=== PATIENT | male | born 1950 | race Caucasian/White ===

== ENCOUNTER 2019-10-16 10:41 | Inpatient (IN) ==
[2019-10-16] MEDS ORDERED: Aspirin 81 MG TAB.CHEW PO ONE (10:48)
[2019-10-16] MEDS: Nitroglycerin 0.4 MG TAB.SUBL SL PRN ×2 (11:09→11:18)
[2019-10-16 12:02] LABS: Basophils % 0.5 %; Eosinophils # 0.1 K/mcL (0.0-0.6); Eosinophils % 1.7 %; Hematocrit 40.9 % (37.5-50.1); Hemoglobin 13.9 g/dL (12.9-16.9); Immature Granulocytes % 0.3 % (0-4); Lymphocytes # 1.7 K/mcL (0.6-4.6); Lymphocytes % 25.6 %; Mean Corpuscular Hemoglobin 30.5 pg (28.0-33.3); Mean Corpuscular Volume 89.7 fL (83.0-100.0); Mean Platelet Volume 9.2 fL (9.4-12.4); Monocytes # 0.5 K/mcL (0.0-1.3); Monocytes % 7.1 %; Neutrophils # 4.2 K/mcL (1.6-8.9); Platelet Count 268 K/mcL (140-400); Red Blood Count 4.56 M/mcL (4.19-5.50); Red Cell Distribution Width 12.7 % (11.5-14.5); Segmented Neutrophils % 64.8 %; White Blood Count 6.4 K/mcL (4.3-11.1)
[2019-10-16 12:24] LABS: Activated Partial Thrombo Time 34.8 Seconds (26.0-36.0); BUN/Creatinine Ratio 15 (6-26); Blood Urea Nitrogen 13 mg/dL (8-23); Calcium 9.2 mg/dL (8.6-10.3); Carbon Dioxide 27 mEq/L (23-29); Chloride 103 mEq/L (98-107); Glucose 179 mg/dL (70-105); Osmolality,Calculated 289 (280-300); Potassium 4.2 mEq/L (3.5-5.1); Prothrombin Time 11.7 Seconds (9.4-12.1); Sodium 137 mEq/L (136-145); Troponin I < 0.03 ng/mL (< 0.04); eGFR For African Americans > 60 (> 60); eGFR For Non-African Americans > 60 (> 60)
[2019-10-16] MEDS ORDERED: *HR* LORazepam 1 MG TABLET PO PRN (13:32)
[2019-10-16] MEDS ORDERED: Ondansetron 4 MG/2 ML VIAL IVP PRN (13:32)
[2019-10-16] MEDS ORDERED: Naloxone 0.4 MG/ML INJ IVP PRN (13:32)
[2019-10-16] MEDS ORDERED: Perflutren Lipid Microsphere 1.3 ML in 0.9 % Sodium Chloride 8.7 ML IVP ONE (18:42)
[2019-10-16] MEDS ORDERED: *HR* Metoprolol 5 MG/5 ML VIAL IVP ONE (21:44)
[2019-10-17 01:04] LABS: Hematocrit 42.6 % (37.5-50.1); Hemoglobin 14.5 g/dL (12.9-16.9); Mean Corpuscular Hemoglobin 30.7 pg (28.0-33.3); Mean Corpuscular Volume 90.1 fL (83.0-100.0); Mean Platelet Volume 9.1 fL (9.4-12.4); Platelet Count 294 K/mcL (140-400); Red Blood Count 4.73 M/mcL (4.19-5.50)
[2019-10-17 01:27] LABS: Alanine Aminotransferase 14 Units/L (7-52); Albumin 4.2 g/dL (3.5-5.7); Albumin/Globulin Ratio 1.6 (1.1-2.2); Alkaline Phosphatase 96 Units/L (34-104); Aspartate Amino Transferase 13 Units/L (13-39); BUN/Creatinine Ratio 18 (6-26); Bilirubin,Total 0.9 mg/dL (0.3-1.0); Blood Urea Nitrogen 15 mg/dL (8-23); Calcium 9.4 mg/dL (8.6-10.3); Carbon Dioxide 24 mEq/L (23-29); Chloride 103 mEq/L (98-107); Chol/HDL Ratio 5.5 (0-4.9); Cholesterol 181 mg/dL (< 200); Globulin 2.7 g/dL (2.4-3.5); Glucose 171 mg/dL (70-105); HDL Cholesterol 33 mg/dL (40-59); LDL Cholesterol,Calculated 124 mg/dL (0-99); Osmolality,Calculated 289 (280-300); Potassium 4.1 mEq/L (3.5-5.1); Sodium 137 mEq/L (136-145); Total Protein 6.9 g/dL (6.4-8.9); Triglycerides 120 mg/dL (< 150); eGFR For African Americans > 60 (> 60); eGFR For Non-African Americans > 60 (> 60)
[2019-10-17] MEDS ORDERED: *HR* Metoprolol 5 MG/5 ML VIAL IVP ONE ×2 (01:38→01:46)
[2019-10-17] MEDS ORDERED: Regadenoson 0.4 MG/5 ML SYRINGE IVP ONE (08:01)
[2019-10-17] MEDS ORDERED: amLODIPine 5 MG TABLET PO SCH (09:00)
[2019-10-17 10:07] LABS: Estimated Average Glucose 163 mg/dl
[2019-10-17] MEDS: Venlafaxine XR (24 HR) 75 MG CAP.ER.24H PO SCH (10:24)
[2019-10-17] MEDS: carvediloL 6.25 MG TABLET PO SCH ×2 (11:59→16:52)
[2019-10-17] MEDS ORDERED: D5% in Water 1,000 ML IVC PRN (14:23)
[2019-10-17] MEDS ORDERED: *HR* Dextrose 50 % in Water (Syg) 50 ML SYRINGE IVP PRN (14:23)
[2019-10-17] MEDS ORDERED: Dextrose Gel 15 GM/37.5 ML TUBE PO PRN ×2 (14:23)
[2019-10-17] MEDS ORDERED: 0.9 % Sodium Chloride 1,000 ML ONE (14:33)
[2019-10-17] MEDS: 0.9 % Sodium Chloride 1,000 ML IVC SCH (15:00)
[2019-10-17] MEDS: Aspirin Enteric Coated 81 MG Tablet PO SCH (16:44)
[2019-10-17] MEDS: Insulin LISPRO 300 UNITS/3 ML VIAL SQ SCH ×2 (16:46→20:58)
[2019-10-18] MEDS: 0.9 % Sodium Chloride 1,000 ML IVC SCH ×3 (01:00→17:20)
[2019-10-18 05:03] LABS: BUN/Creatinine Ratio 16 (6-26); Blood Urea Nitrogen 16 mg/dL (8-23); Calcium 9.7 mg/dL (8.6-10.3); Carbon Dioxide 27 mEq/L (23-29); Chloride 102 mEq/L (98-107); Glucose 140 mg/dL (70-105); Osmolality,Calculated 287 (280-300); Potassium 3.9 mEq/L (3.5-5.1); Sodium 137 mEq/L (136-145); eGFR For African Americans > 60 (> 60); eGFR For Non-African Americans > 60 (> 60)
[2019-10-18 05:16] LABS: Thyroid Stimulating Hormone 1.162 mcIU/mL (0.340-5.600)
[2019-10-18] MEDS: Venlafaxine XR (24 HR) 75 MG CAP.ER.24H PO SCH (08:46)
[2019-10-18] MEDS: Aspirin Enteric Coated 81 MG Tablet PO SCH (08:46)
[2019-10-18] MEDS: Insulin LISPRO 300 UNITS/3 ML VIAL SQ SCH ×4 (08:47→20:57)
[2019-10-19] MEDS: 0.9 % Sodium Chloride 1,000 ML IVC SCH (00:59)
[2019-10-19] MEDS ORDERED: carvediloL 6.25 MG TABLET PO SCH (08:00)
[2019-10-19] MEDS ORDERED: amLODIPine 5 MG TABLET PO SCH (09:00)
[2019-10-19] MEDS: Aspirin Enteric Coated 81 MG Tablet PO SCH (09:06)
[2019-10-19] MEDS: Venlafaxine XR (24 HR) 75 MG CAP.ER.24H PO SCH (09:06)
[2019-10-19] MEDS ORDERED: *HR* Labetalol 20 MG/4 ML SYRINGE IVP ONE (09:11)
[2019-10-19] MEDS: Insulin LISPRO 300 UNITS/3 ML VIAL SQ SCH (09:12)
[2019-10-19 09:39] VITALS: BP 156/89
== END 2019-10-19 11:44 | disposition home or self-care (01) | DRG 313 ==
LOC: EMEROOARM 10:41 → CDU 10:41 → SUATTDRO 13:11 → CDU 13:45 → 3BNU 15:54
PROVIDERS: ADMIT Internal Medicine; ATTEND Internal Medicine